=== PATIENT | male | born 1965 | race Caucasian/White ===

== ENCOUNTER 2016-07-07 13:26 | Emergency (ER) | payer OTHER ==
[~2016-07-07] VITALS: Ht 182.9 cm; Wt 87.0 kg
[2016-07-07 13:28] VITALS: BP 145/86; PULSE 90; RESP 20; TEMP 99.9; O2SAT 99
--- NOTE | 2016-07-07 14:10 | PD ---
Physical Exam Date Seen by Provider: July 07, 2016 Time Seen by Provider: 14:08 Narrative Pt presents with diarrhea, nausea, body aches, vomiting, fevers since yesterday. Pt tolerating fluids but vomits when he attempts to eat. He reports abdominal and back pain. No dysuria. VSS, pt appears well. Awaiting bed placement. Data Data Last Documented VS Vital Signs Date Time Temp Pulse Resp B/P Pulse Ox O2 Delivery O2 Flow Rate FiO2 07/07/16 13:28 99.9 90 20 145/86 99 Room Air [facility] Supervised Visit with MESHA: Rahel Elkins July 07, 2016 14:10
[2016-07-07] MEDS ORDERED: SODIUM CHLOR 0.9% 1000 ML INJ 1,000 ML IV SCH (15:14)
[2016-07-07] MEDS ORDERED: DIPHENOXYLATE/ATROPINE 2.5 MG/0.025 MG TAB PO ONE (15:15)
[2016-07-07] MEDS ORDERED: KETOROLAC TROMETHAMINE 30 MG/ML (IVP) VIAL IV PUSH ONE (15:15)
[2016-07-07] MEDS ORDERED: SODIUM CHLORIDE 0.9% FLUSH 10 ML FLUSH IV FLUSH PRN (15:15)
--- NOTE | 2016-07-07 15:20 | PD ---
HPI Chief Complaint: GI Complaint Time Seen by Provider: 14:39 Travel History International Travel<30 days: No Contact w/Intl Traveler<30days: No Traveled to known affect area: No History of Present Illness HPI 50-year-old male describes diarrhea about 4-5 episodes per hour for about 1 day. He reports to the triage provider he's had vomiting but denies it to me. He also reports to the triage provider generalized myalgias weakness fever chills and headache. To me he denies these complaints specifically and is more concerned about left lower back pain with left lower extremity sciatica. He's had no traumatic injury. He has no perineal/perianal paresthesia. He's had no overflow urinary incontinence or change in bowel habits. There is no weakness in the lower extremities. No hematuria. He believes there is a virus in the community. PFSH Past Medical History ?: Not Social History Alcohol Use: No Tobacco Use: No Substance Use: No Allergies-Medications (Allergen,Severity, Reaction): Coded Allergies: No Known Allergies (Unverified , 07/07/16) Reported Meds & Prescriptions Reported Meds & Active Scripts Active Lomotil (Diphenoxylate-Atropine) 2.5-0.025 Mg Tab 2 Tab PO Q6H PRN Review of Systems Except as stated in HPI: all other systems reviewed are Neg Gastrointestinal: Positive: Diarrhea Physical Exam Narrative GENERAL: 50-year-old male pleasant well-nourished well-developed SKIN: Focused skin assessment warm/dry. HEAD: Atraumatic. Normocephalic. EYES: Pupils equal and round. No scleral icterus. No injection or drainage. ENT: No nasal bleeding or discharge. Mucous membranes pink and moist. NECK: Trachea midline. No JVD. CARDIOVASCULAR: Regular rate and rhythm. No murmur appreciated. RESPIRATORY: No accessory muscle use. Clear to auscultation. Breath sounds equal bilaterally. GASTROINTESTINAL: Abdomen soft, non-tender, nondistended. Hepatic and splenic margins not palpable. MUSCULOSKELETAL: No obvious deformities. No clubbing. No cyanosis. No edema. There is spasm and tenderness involving the high lumbar/low thoracic paravertebral muscle bellies on the left side. On the right side the back is nontender. There is no tenderness about the iliac crest on either side. There is no focal spinal tenderness. NEUROLOGICAL: Awake and alert. No obvious cranial nerve deficits. Motor grossly within normal limits. Normal speech. No ankle clonus on either side. DTRs are intact at the patella tendon bilaterally. Flexion and extension at the knee is normal. Patient is ambulatory. PSYCHIATRIC: Appropriate mood and affect; insight and judgment normal. Data Data Last Documented VS Vital Signs Date Time Temp Pulse Resp B/P Pulse Ox O2 Delivery O2 Flow Rate FiO2 07/07/16 15:27 98 Room Air 07/07/16 15:27 75 18 124/70 07/07/16 13:28 99.9 VS reviewed Orders Basic Metabolic Panel (Bmp) (07/07/16 15:14) Complete Blood Count With Diff (07/07/16 15:14) Iv Access Insert/Monitor (07/07/16 15:14) Ecg Monitoring (07/07/16 15:14) Oximetry (07/07/16 15:14) Sodium Chlor 0.9% 1000 Ml Inj (Ns 1000 M (07/07/16 15:14) Sodium Chloride 0.9% Flush (Ns Flush) (07/07/16 15:15) Diphenoxylate/Atropine Tab (Lomotil Tab) (07/07/16 15:15) Ketorolac Inj (Toradol Inj) (07/07/16 15:15) Labs Laboratory Tests Test 07/07/16 15:20 White Blood Count 6.9 TH/MM3 Red Blood Count 4.82 MIL/MM3 Hemoglobin 14.3 GM/DL Hematocrit 43.3 % Mean Corpuscular Volume 89.8 FL Mean Corpuscular Hemoglobin 29.6 PG Mean Corpuscular Hemoglobin 33.0 % Concent Red Cell Distribution Width 14.0 % Platelet Count 187 TH/MM3 Mean Platelet Volume 8.8 FL Neutrophils (%) (Auto) 74.4 % Lymphocytes (%) (Auto) 12.2 % Monocytes (%) (Auto) 13.2 % Eosinophils (%) (Auto) 0.0 % Basophils (%) (Auto) 0.2 % Neutrophils # (Auto) 5.1 TH/MM3 Lymphocytes # (Auto) 0.8 TH/MM3 Monocytes # (Auto) 0.9 TH/MM3 Eosinophils # (Auto) 0.0 TH/MM3 Basophils # (Auto) 0.0 TH/MM3 CBC Comment DIFF FINAL Differential Comment Sodium Level 137 MEQ/L Potassium Level 3.6 MEQ/L Chloride Level 101 MEQ/L Carbon Dioxide Level 26.1 MEQ/L Anion Gap 10 MEQ/L Blood Urea Nitrogen 13 MG/DL Creatinine 1.31 MG/DL Estimat Glomerular Filtration 58 ML/MIN Rate Random Glucose 98 MG/DL Calcium Level 8.6 MG/DL [facility] Medical Decision Making Medical Screen Exam Complete: Yes Emergency Medical Condition: Yes Differential Diagnosis Viral syndrome, gastroenteritis, spinal cord compression for disc/blood/infect/ abscess/mass, myofascial strain, renal stone, colitis Narrative Course CBC & BMP Diagram 07/07/16 15:20 Reassessment at 415pm: pt asleep on bed. he reports one episode diarrhea here while asleep. pain in R parathoracolumbar back is improved. Return precautions discussed. The patient is resting comfortably and feels better, is alert and in no distress. The patients results and examination findings were discussed. The repeat examination is unremarkable and benign. The history, exam, diagnostic testing, and current condition do not suggest any significant pathology to warrant further testing, continued ED treatment, admission, or surgical evaluation at this point. The vital signs have been stable. The patient does not have uncontrollable pain, intractable vomiting, or other significant symptoms. The patient's condition is stable and appropriate for discharge. The patient will pursue further outpatient evaluation with a primary care physician or other designated or consulting physician as indicated in the discharge instructions. The patient expressed understanding and was agreeable with this plan. Diagnosis Primary Impression: Diarrhea Qualified Code: R19.7 - Diarrhea, unspecified type Additional Impression: Back pain Qualified Code: M54.6 - Acute right-sided thoracic back pain Referrals: [facility] Additional Instructions: You have a choice when it comes to health care, and we are glad that you chose [facility]. Hopefully, we have met your expectations on today's visit. You are welcome to return to [facility] at any time, as we are committed to meeting the health care needs of our community. Med/Other Pt SpecificInfo: Prescription(s) given Scripts Diphenoxylate-Atropine (Lomotil)2.5-0.025 Mg Tab2 Tab PO Q6H PRN (DIARRHEA) #6 TAB Ref 0 Prov:Simón Chris MD 07/07/16 Disposition: 01 DISCHARGE HOME Condition: Stable Simón Chris MD July 07, 2016 15:20
[2016-07-07 15:27] VITALS: BP 124/70; PULSE 75; RESP 18; O2SAT 98
[2016-07-07 15:43] LABS: AUTOMATED NEUTROPHIL # 5.1 TH/MM3 (1.8-7.7); BASOPHIL % 0.2 % (0.0-2.0); HEMATOCRIT 43.3 % (39.0-51.0); HEMO FLAGS DIFF FINAL; LYMPH % 12.2 % (9.0-44.0); LYMPHOCYTE # 0.8 TH/MM3 (1.0-4.8); MEAN CELL VOLUME 89.8 FL (80.0-100.0); MEAN CORPUSCULAR HEMOGLOBIN 29.6 PG (27.0-34.0); MONO % 13.2 % (0.0-8.0); NEUT % 74.4 % (16.0-70.0); PLATELET COUNT 187 TH/MM3 (150-450); RED BLOOD COUNT 4.82 MIL/MM3 (4.50-5.90); WHITE BLOOD COUNT 6.9 TH/MM3 (4.0-11.0)
[2016-07-07] MEDS ORDERED: LOMO2.5T PO (16:03)
[2016-07-07 16:06] LABS: BICARBONATE 26.1 MEQ/L (21.0-32.0); POTASSIUM 3.6 MEQ/L (3.5-5.1)
[2016-07-07 17:09] VITALS: RESP 16
== END 2016-07-07 17:20 | disposition home or self-care (01) ==
LOC: EDSEX → NEPD 13:26
DX: R19.7 Diarrhea, unspecified (principal); M54.6 Pain in thoracic spine
CPT/HCPCS: 80048; 85025; 96361; 96374; 99284; J1885; J7030